=== PATIENT | male | born 1960 | race Caucasian/White ===

== ENCOUNTER 2018-07-03 13:04 | Inpatient (IN) | payer MEDICARE, MEDICAID ==
[~2018-07-03] VITALS: Ht 177.8 cm; Wt 81.8 kg
[~2018-07-03 13:04] MED LIST: DICL-194 PO; PANT-47 PO
[2018-07-03 14:16] LABS: BASOPHILS % (AUTO) 0.6 % (0-1); EOSINOPHILS # (AUTO) 0.2 X10'3 (0-0.9); EOSINOPHILS % (AUTO) 3.3 % (0-6); HEMATOCRIT 47.1 % (42.0-52.0); HEMOGLOBIN 15.6 g/dl (14.0-17.9); LYMPHOCYTES # (AUTO) 2.5 X10'3 (1.1-4.8); LYMPHOCYTES % (AUTO) 38.9 % (21-51); MEAN CORPUSCULAR HEMOGLOBIN 28.5 PG (27.0-31.0); MEAN CORPUSCULAR VOLUME 86.2 FL (78-98); MEAN PLATELET VOLUME 9.1 FL (7.4-10.4); MONOCYTES # (AUTO) 0.4 X10'3 (0-0.9); NEUTROPHILS # (AUTO) 3.3 X10'3 (1.8-7.7); NEUTROPHILS % (AUTO) 50.2 % (42-75); PLATELET COUNT 201 X10'3 (140-440); RED BLOOD COUNT 5.47 X10'6 (4.70-6.10); RED CELL DISTRIBUTION WIDTH 12.7 % (11.5-14.5); WHITE BLOOD COUNT 6.4 X10'3 (4.5-11.0)
[2018-07-03 14:26] LABS: PARTIAL THROMBOPLASTIN TIME 27 SECONDS (22-32); PROTHROMBIN TIME 10.2 SECONDS (9.0-12.0)
[2018-07-03] MEDS ORDERED: cloNIDine 0.1 mg tablet PO ONE (14:30)
[2018-07-03 14:38] LABS: ALANINE AMINOTRANSFERASE 51 U/L (12-78); ALBUMIN 3.9 G/DL (3.4-5.0); ALKALINE PHOSPHATASE 67 IU/L (46-116); ANION GAP 9 (8-16); ASPARTATE AMINO TRANSFERASE 19 U/L (10-37); BILIRUBIN,TOTAL 0.5 MG/DL (0.1-1.0); BLOOD UREA NITROGEN 13 MG/DL (7-18); BUN/CREATININE RATIO 13.7 (5.4-32.0); CALCIUM 8.9 MG/DL (8.5-10.1); CHLORIDE 106 MMOL/L (99-107); CREATININE 0.95 MG/DL (0.60-1.10); GLUCOSE 99 MG/DL (70-104); POTASSIUM 3.6 MMOL/L (3.5-5.1); SODIUM 140 MMOL/L (135-145); TOTAL CARBON DIOXIDE 24.7 MMOL/L (24-32); TOTAL PROTEIN 7.7 G/DL (6.4-8.2); TROPONIN I < 0.04 NG/ML (0.0-0.05); eGFR 82 ML/MIN
[2018-07-03] MEDS ORDERED: morphine 4 MG/ML inj SYRINge IV ONE (14:40)
[2018-07-03] MEDS ORDERED: normal saline 1000ml 1,000 ML IV SCH (15:27)
[2018-07-03] MEDS ORDERED: ondansetron/PF 4mg/2ml inj IV PRN (15:30)
[2018-07-03] MEDS ORDERED: morphine 4 MG/ML inj SYRINge IV PRN ×2 (15:30)
[2018-07-03] MEDS ORDERED: HYDROcodone/acetaminophen 5mg/325mg tablet PO PRN (15:30)
[2018-07-03] MEDS ORDERED: potassium Cl 40MEQ/NS 500ml 500 ML IV PRN ×2 (15:30)
[2018-07-03] MEDS ORDERED: magnesium 1gm/100ml D5W IVPB 100 ML IV PRN (15:30)
[2018-07-03] MEDS ORDERED: potassium Cl 20 mEq SR tablet PO PRN ×2 (15:30)
[2018-07-03] MEDS ORDERED: magnesium hydroxide 30ml (MOM) UD suspension PO PRN (15:30)
[2018-07-03] MEDS ORDERED: mag hydrox/Alum hydrox/simeth 30ml oral suspension PO PRN (15:30)
[2018-07-03] MEDS ORDERED: acetaminophen 325mg tablet PO PRN ×2 (15:30)
[2018-07-03] MEDS ORDERED: magnesium 4gm in 100ml NS 100 ML IV PRN (15:30)
[2018-07-03] MEDS ORDERED: magnesium Cl slow-release 64mg tablet PO PRN (15:30)
[2018-07-03 16:20] VITALS: BP 164/97
[2018-07-03 18:00] VITALS: BP 164/97
[2018-07-03] MEDS: metoprolol tartrate 25mg tablet PO SCH (19:42)
[2018-07-03 19:56] VITALS: BP 116/76
[2018-07-03] MEDS ORDERED: temazepam 15mg capsule PO PRN (21:00)
[2018-07-03 22:00] VITALS: BP 110/82
[2018-07-04] VITALS (7 sets, daily range): BP systolic 108–142; BP diastolic 73–90
[2018-07-04] MEDS: HYDROcodone/acetaminophen 10/325mg tab PO PRN ×4 (00:46→23:56)
[2018-07-04 06:28] LABS: BASOPHILS % (AUTO) 0.5 % (0-1); EOSINOPHILS # (AUTO) 0.2 X10'3 (0-0.9); EOSINOPHILS % (AUTO) 2.7 % (0-6); HEMATOCRIT 43.3 % (42.0-52.0); LYMPHOCYTES # (AUTO) 2.7 X10'3 (1.1-4.8); LYMPHOCYTES % (AUTO) 39.9 % (21-51); MEAN CORPUSCULAR HEMOGLOBIN 27.8 PG (27.0-31.0); MEAN CORPUSCULAR HGB CONC 32.4 % (33.0-36.5); MEAN CORPUSCULAR VOLUME 85.8 FL (78-98); MEAN PLATELET VOLUME 9.8 FL (7.4-10.4); MONOCYTES # (AUTO) 0.5 X10'3 (0-0.9); MONOCYTES % (AUTO) 7.6 % (2-12); NEUTROPHILS # (AUTO) 3.3 X10'3 (1.8-7.7); NEUTROPHILS % (AUTO) 49.3 % (42-75); PLATELET COUNT 192 X10'3 (140-440); RED BLOOD COUNT 5.04 X10'6 (4.70-6.10); RED CELL DISTRIBUTION WIDTH 13.1 % (11.5-14.5); WHITE BLOOD COUNT 6.7 X10'3 (4.5-11.0)
[2018-07-04 06:49] LABS: ALANINE AMINOTRANSFERASE 41 U/L (12-78); ALBUMIN 3.4 G/DL (3.4-5.0); ALKALINE PHOSPHATASE 56 IU/L (46-116); ANION GAP 5 (8-16); ASPARTATE AMINO TRANSFERASE 15 U/L (10-37); BILIRUBIN,TOTAL 0.4 MG/DL (0.1-1.0); BLOOD UREA NITROGEN 13 MG/DL (7-18); BUN/CREATININE RATIO 13.5 (5.4-32.0); CHLORIDE 106 MMOL/L (99-107); CHOLESTEROL 201 MG/DL (0-200); CREATININE 0.96 MG/DL (0.60-1.10); GLUCOSE 92 MG/DL (70-104); HDL CHOLESTEROL 50 MG/DL (35-60); LDL CHOLESTEROL 127 MG/DL (50-100); POTASSIUM 4.3 MMOL/L (3.5-5.1); SODIUM 140 MMOL/L (135-145); TOTAL CARBON DIOXIDE 28.6 MMOL/L (24-32); TOTAL PROTEIN 6.7 G/DL (6.4-8.2); TRIGLYCERIDES 88 MG/DL (20-135); eGFR 81 ML/MIN
[2018-07-04] MEDS: K and/or MAG REPLACEMENT MC SCH (07:22)
[2018-07-04] MEDS: HYDROchlorothiazide 12.5mg capsule PO SCH (07:35)
[2018-07-04] MEDS: metoprolol tartrate 25mg tablet PO SCH ×2 (07:35→19:23)
[2018-07-04] MEDS: lisinopril 10 MG tablet PO SCH (07:35)
[2018-07-04] MEDS: enoxaparin 40mg/0.4ml syringe SQ SCH (07:36)
[2018-07-04] MEDS: pantoprazole 40mg Tablet.DR PO SCH (07:36)
[2018-07-04] MEDS ORDERED: aspirin 81mg tab.chew PO ONE (12:40)
[2018-07-05 02:00] VITALS: BP 113/77
[2018-07-05 05:00] VITALS: BP 103/71
[2018-07-05 05:18] LABS: BASOPHILS % (AUTO) 0.3 % (0-1); EOSINOPHILS # (AUTO) 0.2 X10'3 (0-0.9); EOSINOPHILS % (AUTO) 2.2 % (0-6); HEMATOCRIT 40.3 % (42.0-52.0); HEMOGLOBIN 13.8 g/dl (14.0-17.9); LYMPHOCYTES # (AUTO) 2.9 X10'3 (1.1-4.8); LYMPHOCYTES % (AUTO) 38.3 % (21-51); MEAN CORPUSCULAR HGB CONC 34.2 % (33.0-36.5); MEAN CORPUSCULAR VOLUME 84.8 FL (78-98); MEAN PLATELET VOLUME 9.1 FL (7.4-10.4); MONOCYTES # (AUTO) 0.6 X10'3 (0-0.9); MONOCYTES % (AUTO) 8.3 % (2-12); NEUTROPHILS # (AUTO) 3.8 X10'3 (1.8-7.7); NEUTROPHILS % (AUTO) 50.9 % (42-75); PLATELET COUNT 165 X10'3 (140-440); RED BLOOD COUNT 4.75 X10'6 (4.70-6.10); RED CELL DISTRIBUTION WIDTH 13.5 % (11.5-14.5); WHITE BLOOD COUNT 7.5 X10'3 (4.5-11.0)
[2018-07-05 05:32] LABS: ALANINE AMINOTRANSFERASE 34 U/L (12-78); ALBUMIN 3.3 G/DL (3.4-5.0); ALKALINE PHOSPHATASE 57 IU/L (46-116); ANION GAP 4 (8-16); ASPARTATE AMINO TRANSFERASE 16 U/L (10-37); BILIRUBIN,TOTAL 0.4 MG/DL (0.1-1.0); BLOOD UREA NITROGEN 14 MG/DL (7-18); BUN/CREATININE RATIO 15.1 (5.4-32.0); CALCIUM 8.9 MG/DL (8.5-10.1); CHLORIDE 102 MMOL/L (99-107); CREATININE 0.93 MG/DL (0.60-1.10); GLUCOSE 99 MG/DL (70-104); MAGNESIUM 1.8 MG/DL (1.5-2.4); POTASSIUM 3.6 MMOL/L (3.5-5.1); SODIUM 136 MMOL/L (135-145); TOTAL CARBON DIOXIDE 30.1 MMOL/L (24-32); TOTAL PROTEIN 6.7 G/DL (6.4-8.2); eGFR 84 ML/MIN
[2018-07-05] MEDS ORDERED: atorvastatin 20mg tablet PO SCH (08:00)
[2018-07-05] MEDS: pantoprazole 40mg Tablet.DR PO SCH (08:00)
[2018-07-05] MEDS: K and/or MAG REPLACEMENT MC SCH (08:00)
[2018-07-05 08:06] VITALS: BP 131/83
[2018-07-05] MEDS: HYDROchlorothiazide 12.5mg capsule PO SCH (08:07)
[2018-07-05] MEDS: lisinopril 10 MG tablet PO SCH (08:07)
[2018-07-05] MEDS: metoprolol tartrate 25mg tablet PO SCH (08:07)
[2018-07-05] MEDS: enoxaparin 40mg/0.4ml syringe SQ SCH (08:08)
[2018-07-05] MEDS: HYDROcodone/acetaminophen 10/325mg tab PO PRN (08:10)
[2018-07-05] MEDS ORDERED: aspirin 81mg tab.chew PO SCH (08:30)
[2018-07-05] MEDS ORDERED: ATOR20TA66 PO (10:25)
[2018-07-05] MEDS ORDERED: METO25TA6 PO (10:25)
[2018-07-05] MEDS ORDERED: LISI10TA4 PO (10:25)
[2018-07-05] MEDS ORDERED: ASPI-1265 PO (10:25)
== END 2018-07-05 11:00 | disposition home or self-care (01) | DRG 69 ==
LOC: ER 13:05 → ORTHO 4S 15:27 → ER 16:29 → ORTHO 4S 16:29
PROVIDERS: ADMIT Internal Medicine; ATTEND Family Medicine
DX: G45.9 Transient cerebral ischemic attack, unspecified (principal); I67.6 Nonpyogenic thrombosis of intracranial venous system; I16.0 Hypertensive urgency; H54.62 Unqualified visual loss, left eye, normal vision right eye; K21.9 Gastro-esophageal reflux disease without esophagitis; E78.5 Hyperlipidemia, unspecified; F10.10 Alcohol abuse, uncomplicated; F17.210 Nicotine dependence, cigarettes, uncomplicated; I11.9 Hypertensive heart disease without heart failure; B19.20 Unspecified viral hepatitis C without hepatic coma; M19.90 Unspecified osteoarthritis, unspecified site; H53.8 Other visual disturbances; Z79.899 Other long term (current) drug therapy; Z86.73 Personal history of transient ischemic attack (TIA), and cerebral infarction without residual deficits; Z71.6 Tobacco abuse counseling
CPT/HCPCS: 36415; 70450; 70544; 70551; 71045; 80053; 80061; 82948; 83605; 83735; 84484; 85025; 85610; 85730; 87040; 87070; 93005; 93306; 93880; 97116; 97162; 97530; J1650; J2270; J7030